=== PATIENT | female | born 1975 | race Caucasian/White ===

== ENCOUNTER → 2017-07-23 | Outpatient (CLI) | payer OTHER | LOC: M.RAD 10:12 | DX: M25.532 Pain in left wrist (principal) ==

== ENCOUNTER → 2017-11-30 | Outpatient (CLI) | payer OTHER | LOC: M.RAD 11:24 | DX: S22.41XA Multiple fractures of ribs, right side, initial encounter for closed fracture (principal); M41.84 Other forms of scoliosis, thoracic region; V89.2XXA Person injured in unspecified motor-vehicle accident, traffic, initial encounter; X58.XXXA Exposure to other specified factors, initial encounter; Y93.89 Activity, other specified; Y92.89 Other specified places as the place of occurrence of the external cause; Y99.8 Other external cause status ==

== ENCOUNTER → 2019-11-30 | Outpatient (CLI) | payer OTHER | LOC: M.ULTRA 07:58 | PROVIDERS: ATTEND Internal Medicine | DX: N26.1 Atrophy of kidney (terminal) (principal) ==